=== PATIENT | male | born 1965 | race American Indian/Alaskan Native ===

== ENCOUNTER 2018-02-28 08:34 | Emergency (ER) | payer SELFPAY ==
[~2018-02-28] VITALS: Ht 180.3 cm; Wt 97.5 kg
[2018-02-28 09:28] LABS: BASOPHILS % (AUTO) 0.2 % (0-1); EOSINOPHILS % (AUTO) 0.8 % (0-6); HEMOGLOBIN 15.2 g/dl (14.0-17.9); LYMPHOCYTES # (AUTO) 0.7 X10'3 (1.1-4.8); LYMPHOCYTES % (AUTO) 14.2 % (21-51); MEAN CORPUSCULAR HEMOGLOBIN 35.5 PG (27.0-31.0); MEAN CORPUSCULAR HGB CONC 34.5 % (33.0-36.5); MONOCYTES # (AUTO) 0.9 X10'3 (0-0.9); MONOCYTES % (AUTO) 17.1 % (2-12); NEUTROPHILS # (AUTO) 3.5 X10'3 (1.8-7.7); NEUTROPHILS % (AUTO) 67.7 % (42-75); PLATELET COUNT 146 X10'3 (140-440); RED BLOOD COUNT 4.27 X10'6 (4.70-6.10); WHITE BLOOD COUNT 5.2 X10'3 (4.5-11.0)
[2018-02-28 09:45] LABS: ALANINE AMINOTRANSFERASE 52 U/L (12-78); ALBUMIN 2.6 G/DL (3.4-5.0); ALKALINE PHOSPHATASE 141 IU/L (46-116); ANION GAP 11 (8-16); ASPARTATE AMINO TRANSFERASE 144 U/L (10-37); BILIRUBIN,TOTAL 9.8 MG/DL (0.1-1.0); BLOOD UREA NITROGEN 7 MG/DL (7-18); BUN/CREATININE RATIO 9.1 (5.4-32.0); CALCIUM 8.5 MG/DL (8.5-10.1); CHLORIDE 100 MMOL/L (99-107); CREATININE 0.77 MG/DL (0.60-1.10); GLUCOSE 110 MG/DL (70-104); SODIUM 134 MMOL/L (135-145); TOTAL CARBON DIOXIDE 22.9 MMOL/L (24-32); eGFR > 90 ML/MIN
[2018-02-28 09:46] LABS: ALBUMIN/GLOBULIN RATIO 0.5 (1.1-1.5); LIPASE 230 U/L (73-393); POTASSIUM 3.7 MMOL/L (3.5-5.1); TOTAL PROTEIN 7.5 G/DL (6.4-8.2)
[2018-02-28 10:07] LABS: INR 1.6 INR; PROTHROMBIN TIME 15.7 SECONDS (9.0-12.0)
[2018-02-28 10:24] VITALS: BP 126/70
[2018-02-28 10:57] LABS: CLARITY,URINE SLIGHTLY CLOUDY (Clear); COLOR,URINE ORANGE (Yellow)
[2018-02-28 10:59] LABS: UA COLLECTION TYPE CLN CATCH MIDSTREAM
[2018-02-28 11:09] LABS: MUCUS STRANDS MANY /LPF (Neg); SQUAMOUS EPITHELIAL CELL,UR FEW /LPF (FEW)
[2018-02-28 11:10] LABS: BACTERIA,URINE 1+ /HPF (Neg)
[2018-02-28 11:11] LABS: RBC,URINE 0-2 /HPF (0-2)
[2018-02-28] MEDS ORDERED: FURO-149 PO (11:13)
[2018-02-28] MEDS ORDERED: SPIR25TA5 PO (11:13)
[2018-02-28] MEDS ORDERED: CEPH500C5 PO (11:14)
== END 2018-02-28 11:45 | disposition home or self-care (01) ==
LOC: ER 08:34
DX: K72.90 Hepatic failure, unspecified without coma (principal); R18.8 Other ascites; N39.0 Urinary tract infection, site not specified; Z79.899 Other long term (current) drug therapy
CPT/HCPCS: 36415; 74160; 80053; 81001; 83690; 85025; 85610; 87077; 87088; 87186; 99284

== ENCOUNTER 2018-03-06 08:31 | Emergency (ER) | payer SELFPAY ==
[~2018-03-06 08:31] MED LIST: CEPH500C5 PO; FURO-149 PO; SPIR25TA5 PO
[2018-03-06 09:37] LABS: BASOPHILS % (AUTO) 0.7 % (0-1); EOSINOPHILS # (AUTO) 0.1 X10'3 (0-0.9); EOSINOPHILS % (AUTO) 1.1 % (0-6); HEMATOCRIT 44.4 % (42.0-52.0); HEMOGLOBIN 15.2 g/dl (14.0-17.9); LYMPHOCYTES % (AUTO) 14.4 % (21-51); MEAN CORPUSCULAR HEMOGLOBIN 35.6 PG (27.0-31.0); MEAN CORPUSCULAR HGB CONC 34.3 % (33.0-36.5); MEAN CORPUSCULAR VOLUME 103.8 FL (78-98); MEAN PLATELET VOLUME 6.7 FL (7.4-10.4); MONOCYTES # (AUTO) 1.1 X10'3 (0-0.9); MONOCYTES % (AUTO) 14.7 % (2-12); NEUTROPHILS % (AUTO) 69.1 % (42-75); PLATELET COUNT 196 X10'3 (140-440); RED BLOOD COUNT 4.28 X10'6 (4.70-6.10); RED CELL DISTRIBUTION WIDTH 16.8 % (11.5-14.5); WHITE BLOOD COUNT 7.3 X10'3 (4.5-11.0)
[2018-03-06 09:50] LABS: INR 1.6 INR; PARTIAL THROMBOPLASTIN TIME 31 SECONDS (22-32); PROTHROMBIN TIME 15.5 SECONDS (9.0-12.0)
[2018-03-06] MEDS ORDERED: LIDOcaine 1.5% w/epinephrine 1:200,000 5ml ampul IJ ONE (09:50)
[2018-03-06 09:55] LABS: ALANINE AMINOTRANSFERASE 57 U/L (12-78); ALBUMIN 2.4 G/DL (3.4-5.0); ALKALINE PHOSPHATASE 130 IU/L (46-116); ANION GAP 10 (8-16); ASPARTATE AMINO TRANSFERASE 120 U/L (10-37); BILIRUBIN,TOTAL 8.3 MG/DL (0.1-1.0); BLOOD UREA NITROGEN 19 MG/DL (7-18); BUN/CREATININE RATIO 18.1 (5.4-32.0); CALCIUM 8.3 MG/DL (8.5-10.1); CHLORIDE 99 MMOL/L (99-107); CREATININE 1.05 MG/DL (0.60-1.10); GLUCOSE 112 MG/DL (70-104); SODIUM 134 MMOL/L (135-145); eGFR 75 ML/MIN
[2018-03-06] MEDS ORDERED: LIDOcaine 1% w/epiNEPHrine 1:200,000 30ml vial IJ ONE (09:55)
[2018-03-06 09:57] LABS: ALBUMIN/GLOBULIN RATIO 0.4 (1.1-1.5); POTASSIUM 4.1 MMOL/L (3.5-5.1); TOTAL PROTEIN 7.8 G/DL (6.4-8.2)
[2018-03-06 11:24] VITALS: BP 136/85
[2018-03-06 11:50] LABS: LDH,BODY FLUID 47 U/L
[2018-03-06 12:08] LABS: ALBUMIN,BODY FLUID < 0.6 G/DL
[2018-03-06 12:10] LABS: LYMPHOCYTES,BODY FLUID 62 %; MONOCYTES,BODY FLUID 10 %; NEUTROPHILS,BODY FLUID 28 %; TOTAL PROTEIN,BODY FLUID < 2.0 G/DL
[2018-03-06 12:11] LABS: BF RBC COUNT 2000 /CU MM; BF WBC COUNT 200 /CU MM (0-1000); BFAPPEAR CLEAR; BFCOLOR YELLOW; BFVOLUME 20 ML
== END 2018-03-06 11:35 | disposition home or self-care (01) ==
LOC: ER 08:31
DX: R18.8 Other ascites (principal); K74.60 Unspecified cirrhosis of liver
CPT/HCPCS: 36415; 49083; 80053; 82042; 83615; 84157; 85025; 85610; 85730; 89051; 99285; J3490

== ENCOUNTER 2018-03-09 09:20 | Emergency (ER) | payer SELFPAY ==
[~2018-03-09] VITALS: Ht 180.3 cm; Wt 95.0 kg
[2018-03-09 10:10] LABS: BASOPHILS % (AUTO) 0.4 % (0-1); EOSINOPHILS % (AUTO) 0.5 % (0-6); HEMATOCRIT 44.1 % (42.0-52.0); HEMOGLOBIN 15.1 g/dl (14.0-17.9); LYMPHOCYTES % (AUTO) 15.7 % (21-51); MEAN CORPUSCULAR HEMOGLOBIN 36.5 PG (27.0-31.0); MEAN CORPUSCULAR HGB CONC 34.2 % (33.0-36.5); MEAN CORPUSCULAR VOLUME 106.8 FL (78-98); MEAN PLATELET VOLUME 6.9 FL (7.4-10.4); MONOCYTES # (AUTO) 0.9 X10'3 (0-0.9); MONOCYTES % (AUTO) 14.6 % (2-12); NEUTROPHILS # (AUTO) 4.5 X10'3 (1.8-7.7); NEUTROPHILS % (AUTO) 68.8 % (42-75); PLATELET COUNT 187 X10'3 (140-440); RED BLOOD COUNT 4.13 X10'6 (4.70-6.10); RED CELL DISTRIBUTION WIDTH 15.4 % (11.5-14.5); WHITE BLOOD COUNT 6.4 X10'3 (4.5-11.0)
[2018-03-09 10:30] LABS: ALANINE AMINOTRANSFERASE 56 U/L (12-78); ALBUMIN 2.4 G/DL (3.4-5.0); ALKALINE PHOSPHATASE 120 IU/L (46-116); ANION GAP 9 (8-16); ASPARTATE AMINO TRANSFERASE 111 U/L (10-37); BILIRUBIN,TOTAL 6.4 MG/DL (0.1-1.0); BLOOD UREA NITROGEN 14 MG/DL (7-18); BUN/CREATININE RATIO 16.1 (5.4-32.0); CALCIUM 8.2 MG/DL (8.5-10.1); CHLORIDE 97 MMOL/L (99-107); CREATININE 0.87 MG/DL (0.60-1.10); GLUCOSE 134 MG/DL (70-104); POTASSIUM 3.8 MMOL/L (3.5-5.1); SODIUM 132 MMOL/L (135-145); TOTAL CARBON DIOXIDE 25.9 MMOL/L (24-32); eGFR > 90 ML/MIN
[2018-03-09 10:38] LABS: ALBUMIN/GLOBULIN RATIO 0.5 (1.1-1.5); LIPASE 486 U/L (73-393); TOTAL PROTEIN 7.6 G/DL (6.4-8.2)
--- NOTE | 2018-03-09 10:48 | NUR ---
Paracentesis set up for Dr. hewitt.
--- NOTE | 2018-03-09 11:00 | NUR ---
Dr. Valadez performed paracentesis, catheter placed over the left medial abd. Annika cloudy fluid draining from abd. Will continue to monitor and rotate out filled bottles.
--- NOTE | 2018-03-09 11:20 | NUR ---
Paracentesis has removed approx. 2.64 L fluid at this time. Will notify Dr. hewitt to assess tubing and for possible removal of catheter.
[2018-03-09 11:38] VITALS: BP 134/95
== END 2018-03-09 11:45 | disposition home or self-care (01) ==
LOC: ER 09:21
DX: R18.8 Other ascites (principal); Z79.2 Long term (current) use of antibiotics; Z79.899 Other long term (current) drug therapy
CPT/HCPCS: 36415; 49083; 80053; 83690; 85025; 87070; 99285

== ENCOUNTER 2018-03-16 09:35 | Emergency (ER) | payer SELFPAY ==
[~2018-03-16] VITALS: Ht 180.3 cm; Wt 90.9 kg
[2018-03-16 10:55] VITALS: BP 145/85
--- NOTE | 2018-03-16 10:56 | NUR ---
Dr. Hussein performed paracentesis at bedside. pt educated on procedure and all questions answered. site on right abd. s/p removal of 3.5L. pt tolerated well. VS stable. Pt previously reported abd pain of 8/10. pain level post paracentesis 3/10, no pain medications administered, only lidocain given at the site. Abd site asymptomatic, covered with bandaid.
== END 2018-03-16 11:30 | disposition home or self-care (01) ==
LOC: ER 09:36
DX: R18.8 Other ascites (principal); Z79.2 Long term (current) use of antibiotics; Z79.899 Other long term (current) drug therapy
CPT/HCPCS: 49083; 99285

== ENCOUNTER 2018-03-23 07:08 | Day surgery (SDC) | payer OTHER ==
[~2018-03-23] VITALS: Ht 180.3 cm; Wt 99.3 kg
[2018-03-23] VITALS (7 sets, daily range): BP systolic 124–163; BP diastolic 70–94
[~2018-03-23 07:08] MED LIST changes: +LIDOcaine 1% 30ml preserv. free vial SQ STA
[2018-03-23] MEDS ORDERED: albumin 25% 50mL bottle X 2 BOTTLES IV ONE (07:30)
[2018-03-23] MEDS ORDERED: SPIR25TA5 PO (07:34)
== END 2018-03-23 10:40 | disposition home or self-care (01) ==
LOC: SSTAY O 07:08
PROVIDERS: ATTEND Radiology Vascular & Interventional Radiology
DX: R18.8 Other ascites (principal); K74.60 Unspecified cirrhosis of liver; F10.21 Alcohol dependence, in remission; Z79.899 Other long term (current) drug therapy
CPT/HCPCS: 49083; J3490; P9047

== ENCOUNTER 2018-03-30 07:36 | Day surgery (SDC) | payer OTHER ==
[2018-03-30] VITALS (7 sets, daily range): BP systolic 125–133; BP diastolic 79–89
[~2018-03-30] VITALS: Ht 180.3 cm; Wt 97.1 kg
[~2018-03-30 07:36] MED LIST changes: -CEPH500C5 PO; -FURO-149 PO
[2018-03-30] MEDS ORDERED: normal saline 1000ml 1,000 ML IV PRN (07:50)
[2018-03-30] MEDS ORDERED: albumin 25% 50mL bottle X 2 BOTTLES IV ONE (07:50)
== END 2018-03-30 09:57 | disposition home or self-care (01) ==
LOC: SSTAY O 07:36
PROVIDERS: ATTEND Radiology Diagnostic Radiology
DX: R18.8 Other ascites (principal); K74.60 Unspecified cirrhosis of liver
CPT/HCPCS: 49083; J3490; J7030; P9047

== ENCOUNTER 2018-04-06 07:37 | Day surgery (SDC) | payer OTHER ==
[~2018-04-06] VITALS: Ht 180.3 cm; Wt 96.5 kg
[2018-04-06] VITALS (10 sets, daily range): BP systolic 118–137; BP diastolic 64–84
[2018-04-06] MEDS ORDERED: FURO-150 PO (07:53)
[2018-04-06] MEDS ORDERED: albumin 25% 50mL bottle X 2 BOTTLES IV ONE (08:10)
[2018-04-06] MEDS ORDERED: normal saline 1000ml 1,000 ML IV PRN (08:10)
== END 2018-04-06 10:50 | disposition home or self-care (01) ==
LOC: SSTAY O 07:37
PROVIDERS: ATTEND Radiology Diagnostic Radiology
DX: K70.31 Alcoholic cirrhosis of liver with ascites (principal)
CPT/HCPCS: 49083; J3490; J7030; P9047

== ENCOUNTER 2018-04-17 07:58 | Day surgery (SDC) | payer BC, OTHER ==
[~2018-04-17] VITALS: Ht 180.3 cm; Wt 89.9 kg
[~2018-04-17 07:58] MED LIST changes: +FURO-150 PO; -LIDOcaine 1% 30ml preserv. free vial SQ STA
[2018-04-17] MEDS ORDERED: albumin 25% 50mL bottle X 2 BOTTLES IV ONE (08:10)
[2018-04-17 08:11] VITALS: BP 127/82
[2018-04-17 09:00] VITALS: BP 110/59
[2018-04-17] MEDS ORDERED: LIDOcaine 1% 30ml preserv. free vial SQ ONE (09:00)
[2018-04-17 09:15] VITALS: BP 110/62
[2018-04-17 09:20] VITALS: BP 118/64
== END 2018-04-17 09:20 | disposition home or self-care (01) ==
LOC: SSTAY O 07:58
PROVIDERS: ATTEND Radiology Diagnostic Radiology
DX: K70.31 Alcoholic cirrhosis of liver with ascites (principal); Z88.8 Allergy status to other drugs, medicaments and biological substances
CPT/HCPCS: 49083; C1729; J3490

== ENCOUNTER 2018-08-08 10:08 | Emergency (ER) | payer OTHER ==
[~2018-08-08] VITALS: Ht 177.8 cm; Wt 86.4 kg
[2018-08-08 10:31] LABS: BASOPHILS % (AUTO) 0.5 % (0-1); EOSINOPHILS % (AUTO) 0 % (0-6); HEMATOCRIT 40.7 % (42.0-52.0); HEMOGLOBIN 14.3 g/dl (14.0-17.9); LYMPHOCYTES # (AUTO) 0.7 X10'3 (1.1-4.8); LYMPHOCYTES % (AUTO) 8.6 % (21-51); MEAN CORPUSCULAR HEMOGLOBIN 35.5 PG (27.0-31.0); MEAN CORPUSCULAR HGB CONC 35.2 g/dL (33.0-36.5); MEAN PLATELET VOLUME 6.1 FL (7.4-10.4); MONOCYTES # (AUTO) 0.7 X10'3 (0-0.9); MONOCYTES % (AUTO) 8.8 % (2-12); NEUTROPHILS # (AUTO) 6.7 X10'3 (1.8-7.7); NEUTROPHILS % (AUTO) 82.1 % (42-75); PLATELET COUNT 183 X10'3 (140-440); RED BLOOD COUNT 4.03 X10'6 (4.70-6.10); WHITE BLOOD COUNT 8.2 X10'3 (4.5-11.0)
[2018-08-08 10:33] LABS: CLARITY,URINE CLOUDY (Clear); COLOR,URINE YELLOW (Yellow); GLUCOSE, URINE NEGATIVE (Neg); KETONES,URINE NEGATIVE (Neg); LEUKOCYTE ESTERASE ,URINE TRACE (Neg); NITRITES, URINE NEGATIVE (Neg); OCCULT BLOOD,URINE LARGE (Neg); PH,URINE 5.5 (4.8-8.0); PROTEIN,URINE NEGATIVE (Neg)
[2018-08-08 10:41] LABS: UA COLLECTION TYPE CLN CATCH MIDSTREAM
[2018-08-08 10:45] LABS: ALANINE AMINOTRANSFERASE 35 U/L (12-78); ALBUMIN 3.5 G/DL (3.4-5.0); ALBUMIN/GLOBULIN RATIO 0.8 (1.1-1.5); ALKALINE PHOSPHATASE 75 IU/L (46-116); AMYLASE 61 U/L (25-115); ANION GAP 5 (8-16); ASPARTATE AMINO TRANSFERASE 27 U/L (10-37); BILIRUBIN,TOTAL 1.9 MG/DL (0.1-1.0); BLOOD UREA NITROGEN 17 MG/DL (7-18); BUN/CREATININE RATIO 13.6 (5.4-32.0); CALCIUM 9.2 MG/DL (8.5-10.1); CHLORIDE 105 MMOL/L (99-107); CREATININE 1.25 MG/DL (0.60-1.10); GLUCOSE 135 MG/DL (70-104); LIPASE 114 U/L (73-393); POTASSIUM 4.5 MMOL/L (3.5-5.1); SODIUM 136 MMOL/L (135-145); TOTAL CARBON DIOXIDE 25.8 MMOL/L (24-32); TOTAL PROTEIN 7.9 G/DL (6.4-8.2); eGFR 61 ML/MIN
[2018-08-08] MEDS ORDERED: normal saline 1000ML IV soln IVB ONE (10:45)
[2018-08-08] MEDS ORDERED: ondansetron/PF 4mg/2ml inj IV ONE (10:45)
[2018-08-08] MEDS ORDERED: ketorolac trometh. 30mg/ml inj. IV ONE (10:45)
[2018-08-08 10:47] LABS: BACTERIA,URINE 1+ /HPF (Neg); MUCUS STRANDS FEW /LPF (Neg); RBC,URINE 50-100 /HPF (0-2); SQUAMOUS EPITHELIAL CELL,UR FEW /LPF (FEW)
[2018-08-08] MEDS ORDERED: CefTRIAXone 2gm/D5W 50ml 50 ML IV ONE (11:00)
[2018-08-08] MEDS: morphine 4 MG/ML inj SYRINge IV PRN ×2 (11:13→12:33)
[2018-08-08 11:17] VITALS: BP 142/91
[2018-08-08] MEDS ORDERED: TRAM50TA2 PO (11:48)
[2018-08-08] MEDS ORDERED: ONDA4TAB6 PO (11:48)
[2018-08-08] MEDS ORDERED: FLO0.4C PO (11:48)
[2018-08-08] MEDS ORDERED: NAPR-56 PO (11:48)
[2018-08-08] MEDS ORDERED: CIPR-259 PO (11:48)
[2018-08-08] MEDS ORDERED: tamsulosin 0.4mg capsule PO SCH (12:00)
== END 2018-08-08 12:35 | disposition home or self-care (01) ==
LOC: ER 10:08
DX: N39.0 Urinary tract infection, site not specified (principal); N20.0 Calculus of kidney; Z79.899 Other long term (current) drug therapy; Z79.2 Long term (current) use of antibiotics; Z87.19 Personal history of other diseases of the digestive system
CPT/HCPCS: 36415; 74176; 80053; 81001; 82150; 83690; 85025; 85610; 87088; 96365; 96375; 96376; 99284; J0696; J1885; J2270; J2405; J7030